=== PATIENT | female | born 1985 | race Caucasian/White ===

== ENCOUNTER 2018-11-30 08:42 | Inpatient (IN) | payer MEDICARE, MEDICAID ==
[2018-11-30] MEDS: HYDROCORTISONE 250 MG INJ IV (09:00)
[2018-11-30 09:20] LABS: ABNORMAL IP MESSAGE 1; HEMATOCRIT 25.1 % (37.0-47.0); HEMOGLOBIN 7.8 g/dl (12.0-16.0); MEAN CORPUSCULAR HEMOGLOBIN 33.9 pg (29.0-33.0); MEAN CORPUSCULAR HGB CONC 31.1 g/dl (32.0-37.0); MEAN CORPUSCULAR VOLUME 109.1 fl (82.0-101.0); MEAN PLATELET VOLUME 11.6 fl (7.4-10.4); NUCLEATED RED BLOOD CELLS% 0.4 /100WBC (0.0-0.0); PLATELET COUNT 203 10^3/UL (140-415); RED CELL DISTRIBUTION WIDTH 25.9 % (11.5-14.5)
[2018-11-30 09:20] LABS: WHITE BLOOD COUNT 5.6 10^3/ul (4.8-10.8)
[2018-11-30] MEDS: SUCCINYLCHOLINE CHLORIDE 100 MG/5 ML SYG IV (09:20)
[2018-11-30] MEDS: ETOMIDATE 20 MG INJ IV (09:20)
[2018-11-30 09:21] LABS: ADD MAN DIFF? YES; POSITIVE DIFF @See below
[2018-11-30] MEDS ORDERED: NORepinephrine 8MG/250 ML (PMX 250 ML (09:32)
[2018-11-30 09:34] LABS: ALANINE AMINOTRANSFERASE 39 IU/L (13-69); ALBUMIN 2.6 g/dl (3.3-4.9); ALBUMIN/GLOBULIN RATIO 0.96; ALKALINE PHOSPHATASE 251 IU/L (42-121); ANION GAP 15 (5-13); ASPARTATE AMINO TRANSFERASE 74 IU/L (15-46); BILIRUBIN,INDIRECT 2.1 mg/dl (0-1.1); BILIRUBIN,TOTAL 18.7 mg/dl (0.2-1.3); BLOOD UREA NITROGEN 12 mg/dl (7-20); CALCIUM 8.8 mg/dl (8.4-10.2); CARBON DIOXIDE 12 mmol/L (21-31); CHLORIDE 114 mmol/L (97-110); CREATININE 1.03 mg/dl (0.44-1.00); Estimated GFR > 60 mL/min (>60); GLUCOSE 78 mg/dl (70-220); SODIUM 141 mmol/L (135-144); TOTAL PROTEIN 5.3 g/dl (6.1-8.1)
[2018-11-30 09:35] LABS: AMMONIA 23 umol/l (9-30)
[2018-11-30 09:35] LABS: LIPASE < 10 U/L (23-300)
[2018-11-30 09:37] LABS: INR 1.15; PARTIAL THROMBOPLASTIN TIME 32.3 Sec (23.0-35.0); POTASSIUM 2.5 mmol/L (3.5-5.1); PROTIME 14.8 Sec (11.9-14.9); PT RATIO 1.2
[2018-11-30 09:46] LABS: TROPONIN-I < 0.012 ng/ml (0.000-0.120)
[2018-11-30] MEDS: HYDROCORTISONE 100 MG INJ IV ×3 (09:50→22:27)
[2018-11-30] MEDS: PROPOFOL 100 ML IV ×2 (09:50→14:59)
[2018-11-30] MEDS: SOD CHLORIDE 0.9% 1,000 ML IV ×4 (09:51→20:28)
[2018-11-30] MEDS: SODIUM CHLORIDE 0.9% 1L BAG IV* ×2 (09:51→19:31)
[2018-11-30] MEDS: CEFEPIME 2GM/50 ML (PMX) 50 ML IVPB (09:51)
[2018-11-30] MEDS: NORepinephrine 8MG/250 ML (PMX 250 ML IV ×3 (09:52→20:47)
[2018-11-30] MEDS ORDERED: ONDANSETRON 4 MG INJ IV (10:00)
[2018-11-30] MEDS ORDERED: ACETAMINOPHEN 325 MG TAB PO (10:00)
[2018-11-30 10:05] LABS: ANISOCYTOSIS 2+ (0-0); BAND NEUTROPHILS #M 0.6 10^3/ul (0.0-0.6); BAND NEUTROPHILS % (M) 12 % (0-4); BURR CELLS 3+ (0-0); ERYTHROBLAST% (NRBC) (M) 1 % (0-0); LYMPHOCYTES #M 1.7 10^3/ul (0.8-2.9); LYMPHOCYTES % (M) 31 % (15-51); MICROCYTOSIS 1+ (0-0); MONOCYTE #M 0.6 10^3/ul (0.3-0.9); MONOCYTES % (M) 12 % (0-11); OVALOCYTES 1+ (0-0); PLATELET ESTIMATE NORMAL; POIKILOCYTOSIS 3+ (0-0); POLYCHROMASIA 1+ (0-0); SEG NEUT #M 2.6 10^3/ul (1.6-7.5); SEGMENTED NEUTROPHILS (M) % 45 % (39-77); SMUDGE%M 2 % (0-0)
[2018-11-30] MEDS: ACETAMINOPHEN 120 MG SUPP PR (10:32)
[2018-11-30] MEDS: POTASSIUM CHLORIDE 50 ML IVPB ×4 (10:33→19:01)
[2018-11-30] MEDS: VANCOMYCIN 1 GM (PMX) 250 ML IVPB (10:40)
[2018-11-30] MEDS: FENTAnyl (DRIP) 1000 mcg/100mL 100 ML IV (11:07)
[2018-11-30 11:23] LABS: AADO2 Arterial 154.7 mmHg (7.0-24.0); Arterial Blood Gas Oxygen Sat 99.9 mmHG (95.0-98.0); Arterial COHb 0.7 % (0.0-3.0); Arterial HCO3 9.6 mmol/L (22.0-26.0); Arterial MetHb 0.2 % (0.0-1.5); Arterial pCO2 22.7 mmhg (35-45); MODE VENT - AC; Site Right Brachial
[2018-11-30] MEDS: ALBUMIN HUMAN 25% 100 ML IV (12:04)
[2018-11-30 12:55] LABS: CREATINE KINASE 41 IU/L (23-200)
[2018-11-30] MEDS: MIDAZOLAM (DRIP) 50 mg/50 mL 50 ML IV ×3 (13:01→19:05)
[2018-11-30 13:08] LABS: CK-MB 0.33 ng/ml (0.0-2.4); TROPONIN-I < 0.012 ng/ml (0.000-0.120)
[2018-11-30 13:14] LABS: LACTIC ACID 4.7 mmol/L (0.5-2.0)
[2018-11-30 13:16] LABS: CK INDEX 0.8
[2018-11-30 14:09] LABS: ADD UMIC YES; UR ASCORBIC ACID NEGATIVE (NEGATIVE); UR BACTERIA FEW /HPF (NONE SEEN); UR BILIRUBIN (Dip) 2+ mg/dL (NEGATIVE); UR BLOOD (Dip) 1+ mg/dL (NEGATIVE); UR CLARITY SLIGHTLY CLOUDY (CLEAR); UR COLOR AMBER (YELLOW); UR GLUCOSE (Dip) NEGATIVE (NEGATIVE); UR KETONES (Dip) NEGATIVE (NEGATIVE); UR LEUKOCYTE ESTERASE (Dip) NEGATIVE Leu/ul (NEGATIVE); UR MUCUS FEW /HPF (NONE SEEN); UR NITRITE (Dip) NEGATIVE (NEGATIVE); UR RBC 1 /HPF (0-5); UR SPECIFIC GRAVITY (Dip) 1.008 (1.003-1.030); UR SQUAMOUS EPITHELIAL CELL FEW /HPF (FEW); UR TOTAL PROTEIN (Dip) 2+ mg/dl (NEGATIVE); UR UROBILINOGEN (Dip) 2+ mg/dL (NEGATIVE); UR WBC 7 /HPF (0-5)
[2018-11-30] MEDS: URSODIOL 300 MG CAP PO ×2 (14:58→21:49)
[2018-11-30 16:30] LABS: LACTIC ACID 5.1 mmol/L (0.5-2.0)
[2018-11-30] MEDS ORDERED: VANCOMYCIN IV PER PHARMACY XX (16:30)
[2018-11-30 16:38] LABS: SODIUM,URINE RANDOM 82 mmol/L (30-90)
[2018-11-30 16:38] LABS: CREATININE,URINE RANDOM 30.11 mg/dl (20-320)
[2018-11-30] MEDS: PHENYLephrine 40 MG in DEXTROSE 5% 246 ML IV ×2 (18:38→23:55)
[2018-11-30 19:20] LABS: AADO2 Arterial 65.2 mmHg (7.0-24.0); Allen Test ACCEPTAB; Arterial Base Excess -17.1 mmol/L (-3.0-3); Arterial Blood Gas Oxygen Sat 98.2 mmHG (95.0-98.0); Arterial COHb 0.9 % (0.0-3.0); Arterial Fraction of Oxyhgb 97.2 % (93.0-99.0); Arterial HCO3 8.3 mmol/L (22.0-26.0); Arterial MetHb 0.1 % (0.0-1.5); Arterial pCO2 19.6 mmhg (35-45); MODE VENT - AC; Site Right Radial
[2018-11-30 19:22] LABS: CREATINE KINASE 67 IU/L (23-200)
[2018-11-30] MEDS: NA BICARBONATE 8.4% 50 ML SYG IV (19:31)
[2018-11-30 19:34] LABS: CK INDEX 1.7; CK-MB 1.16 ng/ml (0.0-2.4); TROPONIN-I < 0.012 ng/ml (0.000-0.120)
[2018-11-30] MEDS: metroNIDAZOLE 500 MG/NS (PMX) 100 ML IVPB ×2 (19:57→22:00)
[2018-11-30] MEDS: MEROPENEM 1 GM/50ML(PMX) 50 ML IVPB ×2 (19:57→22:00)
[2018-11-30] MEDS: SODIUM BICARBONATE (IV ADD) 100 MEQ in DEXTROSE 5%-0.45% NACL 900 ML IV (20:15)
[2018-11-30 20:50] LABS: PROCALCITONIN 120.64 ng/mL (0.00-0.10)
[2018-11-30] MEDS: VANCOMYCIN HCL 250 MG/5ML POSYG PO (21:06)
[2018-11-30] MEDS: CASPOFUNGIN 70 MG in SOD CHLORIDE 0.9% 250 ML IVPB (21:06)
[2018-11-30] MEDS: TACROLIMUS 1 MG CAP PO (21:49)
[2018-11-30] MEDS: CHOLESTYRAMINE 4 GM PACKET PO (21:49)
[2018-11-30] MEDS: DEXTROSE 5% IVPB (21:50)
[2018-11-30] MEDS: GANCICLOVIR IVPB (21:50)
[2018-11-30] MEDS: NA BICARBONATE 650 MG TAB PO (22:27)
[2018-11-30] MEDS: VANCOMYCIN 1 GM 250 ML IVPB (22:56)
[2018-12-01 00:18] LABS: AADO2 Arterial 78.7 mmHg (7.0-24.0); Allen Test ACCEPTAB; Arterial Base Excess -17.4 mmol/L (-3.0-3); Arterial Blood Gas Oxygen Sat 97.7 mmHG (95.0-98.0); Arterial COHb 0.8 % (0.0-3.0); Arterial Fraction of Oxyhgb 96.8 % (93.0-99.0); Arterial MetHb 0.1 % (0.0-1.5); Arterial pCO2 19.2 mmhg (35-45); Blood Gas Low PEEP Setting 0 cmH2O; MODE VENT - AC; Site Left Radial
[2018-12-01] MEDS: VANCOMYCIN HCL 250 MG/5ML POSYG PO ×2 (00:30→05:50)
[2018-12-01] MEDS: MIDAZOLAM (DRIP) 50 mg/50 mL 50 ML IV ×3 (00:40→17:28)
[2018-12-01] MEDS: NORepinephrine 8MG/250 ML (PMX 250 ML IV ×3 (01:14→10:08)
[2018-12-01 01:25] LABS: WHITE BLOOD COUNT 7.2 10^3/ul (4.8-10.8)
[2018-12-01 01:25] LABS: ABNORMAL IP MESSAGE 1; HEMATOCRIT 29.6 % (37.0-47.0); MEAN CORPUSCULAR HEMOGLOBIN 33.6 pg (29.0-33.0); MEAN CORPUSCULAR HGB CONC 30.4 g/dl (32.0-37.0); MEAN CORPUSCULAR VOLUME 110.4 fl (82.0-101.0); MEAN PLATELET VOLUME 9.8 fl (7.4-10.4); NUCLEATED RED BLOOD CELLS% 0.6 /100WBC (0.0-0.0); PLATELET COUNT 323 10^3/UL (140-415); RED BLOOD COUNT 2.68 10^6/ul (4.20-5.40); RED CELL DISTRIBUTION WIDTH 26.8 % (11.5-14.5)
[2018-12-01 01:26] LABS: POSITIVE DIFF @See below
[2018-12-01 01:27] LABS: ADD MAN DIFF? YES
[2018-12-01 01:42] LABS: CREATINE KINASE 69 IU/L (23-200)
[2018-12-01 01:44] LABS: LACTIC ACID 5.2 mmol/L (0.5-2.0)
[2018-12-01 01:45] LABS: INR 1.64; PROTIME 19.5 Sec (11.9-14.9); PT RATIO 1.5
[2018-12-01 01:54] LABS: ALANINE AMINOTRANSFERASE 48 IU/L (13-69); ALBUMIN 2.6 g/dl (3.3-4.9); ALKALINE PHOSPHATASE 203 IU/L (42-121); ANION GAP 16 (5-13); ASPARTATE AMINO TRANSFERASE 144 IU/L (15-46); BILIRUBIN,INDIRECT 2.1 mg/dl (0-1.1); BILIRUBIN,TOTAL 22.4 mg/dl (0.2-1.3); BLOOD UREA NITROGEN 14 mg/dl (7-20); CALCIUM 7.4 mg/dl (8.4-10.2); CHLORIDE 118 mmol/L (97-110); CREATININE 1.15 mg/dl (0.44-1.00); Estimated GFR 54 mL/min (>60); GLUCOSE 158 mg/dl (70-220); PHOSPHORUS 3.9 mg/dl (2.5-4.9); POTASSIUM 3.8 mmol/L (3.5-5.1); SODIUM 142 mmol/L (135-144); TOTAL PROTEIN 5.2 g/dl (6.1-8.1)
[2018-12-01 01:55] LABS: CK INDEX 1.9; CK-MB 1.34 ng/ml (0.0-2.4); TROPONIN-I < 0.012 ng/ml (0.000-0.120)
[2018-12-01 01:57] LABS: PARTIAL THROMBOPLASTIN TIME 68.3 Sec (23.0-35.0)
[2018-12-01 02:05] LABS: CARBON DIOXIDE 8 mmol/L (21-31)
[2018-12-01] MEDS: FENTAnyl (DRIP) 1000 mcg/100mL 100 ML IV ×2 (02:09→15:59)
[2018-12-01] MEDS: PROPOFOL 100 ML IV ×2 (03:00→15:00)
[2018-12-01 03:53] LABS: ANISOCYTOSIS 2+ (0-0); BAND NEUTROPHILS #M 2.1 10^3/ul (0.0-0.6); BAND NEUTROPHILS % (M) 30 % (0-4); ERYTHROBLAST% (NRBC) (M) 1 % (0-0); GIANT THROMBO% (M) 1 % (0-0); LYMPHOCYTES #M 0.1 10^3/ul (0.8-2.9); LYMPHOCYTES % (M) 2 % (15-51); METAMYELOCYTES #M 0.2 10^3/ul (0.0-0.0); METAMYELOCYTES %M 3 % (0-0); MICROCYTOSIS 1+ (0-0); MONOCYTE #M 0.5 10^3/ul (0.3-0.9); MONOCYTES % (M) 8 % (0-11); PLATELET ESTIMATE NORMAL; POIKILOCYTOSIS 3+ (0-0); POLYCHROMASIA 1+ (0-0); PROMYELOCYTES % (M) 1 % (0-0); SEG NEUT #M 4.2 10^3/ul (1.6-7.5); SEGMENTED NEUTROPHILS (M) % 56 % (39-77); SMUDGE%M 2 % (0-0)
[2018-12-01] MEDS: SOD CHLORIDE 0.9% 1,000 ML IV (04:42)
[2018-12-01 05:22] LABS: ABNORMAL IP MESSAGE 1; HEMATOCRIT 30.5 % (37.0-47.0); HEMOGLOBIN 9.2 g/dl (12.0-16.0); MEAN CORPUSCULAR HEMOGLOBIN 33.1 pg (29.0-33.0); MEAN CORPUSCULAR HGB CONC 30.2 g/dl (32.0-37.0); MEAN CORPUSCULAR VOLUME 109.7 fl (82.0-101.0); MEAN PLATELET VOLUME 10.9 fl (7.4-10.4); NUCLEATED RED BLOOD CELLS% 0.4 /100WBC (0.0-0.0); PLATELET COUNT 307 10^3/UL (140-415); RED BLOOD COUNT 2.78 10^6/ul (4.20-5.40); RED CELL DISTRIBUTION WIDTH 26.9 % (11.5-14.5)
[2018-12-01 05:22] LABS: WHITE BLOOD COUNT 7.9 10^3/ul (4.8-10.8)
[2018-12-01 05:24] LABS: ANION GAP 17 (5-13); BLOOD UREA NITROGEN 15 mg/dl (7-20); CALCIUM 7.3 mg/dl (8.4-10.2); CHLORIDE 116 mmol/L (97-110); CREATININE 1.41 mg/dl (0.44-1.00); Estimated GFR 43 mL/min (>60); GLUCOSE 190 mg/dl (70-220); PHOSPHORUS 4.4 mg/dl (2.5-4.9); POTASSIUM 3.5 mmol/L (3.5-5.1); SODIUM 142 mmol/L (135-144)
[2018-12-01 05:33] LABS: ADD MAN DIFF? YES; POSITIVE DIFF @See below
[2018-12-01] MEDS: PANTOPRAZOLE 40 MG INJ IV (05:33)
[2018-12-01] MEDS: HYDROCORTISONE 100 MG INJ IV ×3 (05:34→21:02)
[2018-12-01] MEDS: metroNIDAZOLE 500 MG/NS (PMX) 100 ML IVPB ×3 (05:34→21:38)
[2018-12-01] MEDS: MEROPENEM 1 GM/50ML(PMX) 50 ML IVPB ×2 (05:34→13:40)
[2018-12-01 05:39] LABS: CARBON DIOXIDE 9 mmol/L (21-31)
[2018-12-01 05:40] LABS: LACTIC ACID 6.9 mmol/L (0.5-2.0)
[2018-12-01] MEDS: SODIUM BICARBONATE (IV ADD) 100 MEQ in DEXTROSE 5%-0.45% NACL 900 ML IV (05:47)
[2018-12-01] MEDS: PHENYLephrine 40 MG in DEXTROSE 5% 246 ML IV (05:49)
[2018-12-01 08:09] LABS: AADO2 Arterial 100.9 mmHg (7.0-24.0); Allen Test ACCEPTAB; Arterial Base Excess -18.9 mmol/L (-3.0-3); Arterial Blood Gas Oxygen Sat 96.4 mmHG (95.0-98.0); Arterial Fraction of Oxyhgb 95.1 % (93.0-99.0); Arterial HCO3 7.1 mmol/L (22.0-26.0); Arterial MetHb 0.3 % (0.0-1.5); Arterial pCO2 18.4 mmhg (35-45); MODE VENT - AC; Site Right Radial
[2018-12-01 08:10] LABS: ANISOCYTOSIS 2+ (0-0); BAND NEUTROPHILS #M 3.7 10^3/ul (0.0-0.6); BAND NEUTROPHILS % (M) 47 % (0-4); BURR CELLS 3+ (0-0); LYMPHOCYTES #M 0.3 10^3/ul (0.8-2.9); LYMPHOCYTES % (M) 5 % (15-51); METAMYELOCYTES #M 0.2 10^3/ul (0.0-0.0); METAMYELOCYTES %M 3 % (0-0); MICROCYTOSIS 1+ (0-0); MONOCYTE #M 0.7 10^3/ul (0.3-0.9); MONOCYTES % (M) 9 % (0-11); MYELOCYTES % (M) 1 % (0-0); OVALOCYTES 1+ (0-0); PLATELET ESTIMATE NORMAL; POIKILOCYTOSIS 3+ (0-0); POLYCHROMASIA 1+ (0-0); REACTIVE LYMPHOCYTES% (M) 1 % (0-0); SCHISTOCYTES 1+ (0-0); SEGMENTED NEUTROPHILS (M) % 34 % (39-77); SMUDGE%M 4 % (0-0)
[2018-12-01] MEDS: MAGNESIUM SULFATE 2 GM/50 ML 50 ML IVPB ×2 (08:43→11:16)
[2018-12-01] MEDS ORDERED: MULTIVITAMINS/MINERALS TAB PO (09:00)
[2018-12-01] MEDS: SODIUM BICARBONATE (IV ADD) 150 MEQ in DEXTROSE 5% 850 ML IV ×3 (09:00→19:31)
[2018-12-01] MEDS: NA BICARBONATE 8.4% 50 ML SYG IV ×2 (09:39→22:03)
[2018-12-01] MEDS: DEXTROSE 5% IVPB (09:43)
[2018-12-01] MEDS: GANCICLOVIR IVPB (09:43)
[2018-12-01] MEDS: CHOLESTYRAMINE 4 GM PACKET NGT ×2 (09:52→21:04)
[2018-12-01] MEDS: TACROLIMUS 1 MG CAP NGT ×2 (09:52→21:04)
[2018-12-01] MEDS: NA BICARBONATE 650 MG TAB NGT ×2 (09:52→21:03)
[2018-12-01] MEDS: URSODIOL 300 MG CAP NGT ×3 (09:53→21:04)
[2018-12-01] MEDS: MULTIVITAMINS/MINERALS TAB NGT (09:53)
[2018-12-01] MEDS: VANCOMYCIN 1 GM 250 ML IVPB (11:21)
[2018-12-01 11:47] LABS: LACTIC ACID 6.8 mmol/L (0.5-2.0)
[2018-12-01] MEDS ORDERED: AMIKACIN IV PER PHARMACY XX (12:00)
[2018-12-01] MEDS ORDERED: VANCOMYCIN HCL 250 MG/5ML POSYG NGT (12:00)
[2018-12-01] MEDS: PHENYLephrine 80 MG in DEXTROSE 5% 242 ML IV ×2 (12:25→23:32)
[2018-12-01] MEDS: INSULIN ASPART [NOVOLOG] 3 ML PEN SC ×3 (13:39→21:17)
[2018-12-01] MEDS: NORepinephrine 32 MG in DEXTROSE 5% 218 ML IV ×2 (14:36→23:10)
[2018-12-01] MEDS: AMIKACIN IVPB (14:53)
[2018-12-01] MEDS: SOD CHLORIDE 0.9% IVPB (14:53)
[2018-12-01 16:46] LABS: CREATININE, RANDOM URINE 31 mg/dL (20-275); MICROALBUMIN 58.3 mg/dL; MICROALBUMIN/CREATININE RATIO 1881 (<30)
[2018-12-01] MEDS ORDERED: CASPOFUNGIN 50 MG in SOD CHLORIDE 0.9% 250 ML IVPB (20:00)
[2018-12-01 21:23] LABS: CMV DNA QL SOURCE WHOLE BLOOD
[2018-12-01 21:24] LABS: WHITE BLOOD COUNT 6.7 10^3/ul (4.8-10.8)
[2018-12-01 21:24] LABS: ABNORMAL IP MESSAGE 1; HEMATOCRIT 29.2 % (37.0-47.0); HEMOGLOBIN 8.4 g/dl (12.0-16.0); MEAN CORPUSCULAR HEMOGLOBIN 33.2 pg (29.0-33.0); MEAN CORPUSCULAR HGB CONC 28.8 g/dl (32.0-37.0); MEAN CORPUSCULAR VOLUME 115.4 fl (82.0-101.0); PLATELET COUNT 99 10^3/UL (140-415); RED BLOOD COUNT 2.53 10^6/ul (4.20-5.40); RED CELL DISTRIBUTION WIDTH 27.6 % (11.5-14.5)
[2018-12-01 21:33] LABS: MEAN PLATELET VOLUME 13.5 fl (7.4-10.4); POSITIVE DIFF @See below
[2018-12-01 21:34] LABS: ADD MAN DIFF? YES
[2018-12-01] MEDS: CASPOFUNGIN 35 MG in SOD CHLORIDE 0.9% 250 ML IVPB (21:37)
[2018-12-01 21:43] LABS: AADO2 Arterial 136.2 mmHg (7.0-24.0); Arterial Base Excess -26.2 mmol/L (-3.0-3); Arterial Blood Gas Oxygen Sat 60.5 mmHG (95.0-98.0); Arterial COHb 0.6 % (0.0-3.0); Arterial HCO3 5.6 mmol/L (22.0-26.0); Arterial MetHb 0.2 % (0.0-1.5); Arterial pCO2 31.8 mmhg (35-45); Blood Gas Low PEEP Setting 0 cmH2O; MODE VENT - AC; Site Right Brachial
[2018-12-01 21:44] LABS: ALANINE AMINOTRANSFERASE 48 IU/L (13-69); ALBUMIN 2.5 g/dl (3.3-4.9); ALBUMIN/GLOBULIN RATIO 0.92; ALKALINE PHOSPHATASE 168 IU/L (42-121); ANION GAP 21 (5-13); ASPARTATE AMINO TRANSFERASE 84 IU/L (15-46); BILIRUBIN,INDIRECT 1.8 mg/dl (0-1.1); BILIRUBIN,TOTAL 21.4 mg/dl (0.2-1.3); BLOOD UREA NITROGEN 20 mg/dl (7-20); CALCIUM 6.7 mg/dl (8.4-10.2); CHLORIDE 112 mmol/L (97-110); Estimated GFR 30 mL/min (>60); GLUCOSE 152 mg/dl (70-220); MAGNESIUM 2.1 mg/dl (1.7-2.5); PHOSPHORUS 8.1 mg/dl (2.5-4.9); POTASSIUM 4.1 mmol/L (3.5-5.1); SODIUM 140 mmol/L (135-144); TOTAL PROTEIN 5.2 g/dl (6.1-8.1)
[2018-12-01] MEDS: SOD CHLORIDE 0.9% 500 ML IV (21:45)
[2018-12-01 21:52] LABS: CARBON DIOXIDE 7 mmol/L (21-31)
[2018-12-01 21:54] LABS: LACTIC ACID 13.9 mmol/L (0.5-2.0)
[2018-12-01] MEDS: VASOPRESSIN 60 UNIT in DEXTROSE 5% 57 ML IV (22:16)
[2018-12-01 22:22] LABS: ANISOCYTOSIS 2+ (0-0); BAND NEUTROPHILS #M 1.6 10^3/ul (0.0-0.6); BAND NEUTROPHILS % (M) 24 % (0-4); BURR CELLS 3+ (0-0); ERYTHROBLAST% (NRBC) (M) 2 % (0-0); LYMPHOCYTES #M 0.2 10^3/ul (0.8-2.9); LYMPHOCYTES % (M) 4 % (15-51); METAMYELOCYTES #M 0.4 10^3/ul (0.0-0.0); METAMYELOCYTES %M 6 % (0-0); MICROCYTOSIS 1+ (0-0); MONOCYTE #M 1.2 10^3/ul (0.3-0.9); MONOCYTES % (M) 19 % (0-11); MYELOCYTES #M 0.1 10^3/ul (0.0-0.0); MYELOCYTES % (M) 2 % (0-0); PLATELET ESTIMATE DECREASED; POIKILOCYTOSIS 3+ (0-0); POLYCHROMASIA 1+ (0-0); PROMYELOCYTES % (M) 1 % (0-0); SEG NEUT #M 3.1 10^3/ul (1.6-7.5); SEGMENTED NEUTROPHILS (M) % 44 % (39-77); SMUDGE%M 2 % (0-0)
[2018-12-01] MEDS: DOPamine-D5W 1.6 MG/ML 250 ML IV (22:49)
[2018-12-02] MEDS: INSULIN ASPART [NOVOLOG] 3 ML PEN SC ×5 (00:42→18:38)
[2018-12-02] MEDS: MIDAZOLAM (DRIP) 50 mg/50 mL 50 ML IV (01:02)
[2018-12-02] MEDS: ACCU-CHEK XX (02:00)
[2018-12-02] MEDS: PROPOFOL 100 ML IV ×2 (03:00→15:00)
[2018-12-02] MEDS: PHENYLephrine 80 MG in DEXTROSE 5% 242 ML IV ×2 (04:42→10:05)
[2018-12-02 05:13] LABS: PLATELET COUNT 89 10^3/UL (140-415)
[2018-12-02 05:16] LABS: ABNORMAL IP MESSAGE 1; HEMATOCRIT 28.1 % (37.0-47.0); HEMOGLOBIN 8.6 g/dl (12.0-16.0); MEAN CORPUSCULAR HEMOGLOBIN 33.1 pg (29.0-33.0); MEAN CORPUSCULAR HGB CONC 30.6 g/dl (32.0-37.0); MEAN CORPUSCULAR VOLUME 108.1 fl (82.0-101.0); NUCLEATED RED BLOOD CELLS% 1.7 /100WBC (0.0-0.0); PLATELET COUNT 98 10^3/UL (140-415); RED CELL DISTRIBUTION WIDTH 27.3 % (11.5-14.5)
[2018-12-02 05:30] LABS: ADD MAN DIFF? YES; POSITIVE DIFF @See below
[2018-12-02] MEDS: PANTOPRAZOLE 40 MG INJ IV (05:48)
[2018-12-02] MEDS: metroNIDAZOLE 500 MG/NS (PMX) 100 ML IVPB ×2 (05:48→14:24)
[2018-12-02 05:49] LABS: ANION GAP 22 (5-13); BLOOD UREA NITROGEN 22 mg/dl (7-20); CALCIUM 6.4 mg/dl (8.4-10.2); CARBON DIOXIDE 10 mmol/L (21-31); CHLORIDE 110 mmol/L (97-110); CREATININE 1.74 mg/dl (0.44-1.00); Estimated GFR 33 mL/min (>60); GLUCOSE 155 mg/dl (70-220); INR 2.39; POTASSIUM 3.7 mmol/L (3.5-5.1); PROTIME 26.1 Sec (11.9-14.9); SODIUM 142 mmol/L (135-144)
[2018-12-02 05:50] LABS: THROMBIN TIME 20.7 SEC (13.8-19.1)
[2018-12-02] MEDS: SODIUM BICARBONATE (IV ADD) 150 MEQ in DEXTROSE 5% 850 ML IV ×2 (05:58→18:30)
[2018-12-02 06:06] LABS: LACTIC ACID 11.3 mmol/L (0.5-2.0)
[2018-12-02 06:09] LABS: PARTIAL THROMBOPLASTIN TIME 85.1 Sec (23.0-35.0)
[2018-12-02 06:16] LABS: MAGNESIUM 1.8 mg/dl (1.7-2.5)
[2018-12-02 06:31] LABS: VANCOMYCIN,RANDOM 30.9 ug/ml
[2018-12-02] MEDS: FENTAnyl (DRIP) 1000 mcg/100mL 100 ML IV (06:55)
[2018-12-02 07:27] LABS: AADO2 Arterial 387.7 mmHg (7.0-24.0); Allen Test ACCEPTAB; Arterial Blood Gas Oxygen Sat 99.5 mmHG (95.0-98.0); Arterial COHb 0.4 % (0.0-3.0); Arterial MetHb 0.1 % (0.0-1.5); Arterial pCO2 25.1 mmhg (35-45); MODE VENT - AC; Site Right Radial
[2018-12-02 08:17] LABS: ANISOCYTOSIS 2+ (0-0); BAND NEUTROPHILS #M 2.5 10^3/ul (0.0-0.6); BAND NEUTROPHILS % (M) 36 % (0-4); BURR CELLS 2+ (0-0); ERYTHROBLAST% (NRBC) (M) 4 % (0-0); LYMPHOCYTES #M 0.2 10^3/ul (0.8-2.9); LYMPHOCYTES % (M) 4 % (15-51); MONOCYTE #M 0.4 10^3/ul (0.3-0.9); MONOCYTES % (M) 7 % (0-11); OVALOCYTES 1+ (0-0); PLATELET ESTIMATE DECREASED; POIKILOCYTOSIS 3+ (0-0); POLYCHROMASIA 1+ (0-0); SEG NEUT #M 3.9 10^3/ul (1.6-7.5); SEGMENTED NEUTROPHILS (M) % 53 % (39-77); SMUDGE%M 7 % (0-0); TOXIC GRANULATION 1+ (0-0)
[2018-12-02] MEDS: ALBUMIN HUMAN 25% 100 ML IV ×2 (09:02→18:27)
[2018-12-02] MEDS: NA BICARBONATE 650 MG TAB NGT (09:30)
[2018-12-02] MEDS: TACROLIMUS 1 MG CAP NGT (09:30)
[2018-12-02] MEDS: URSODIOL 300 MG CAP NGT ×2 (09:31→13:50)
[2018-12-02] MEDS: CHOLESTYRAMINE 4 GM PACKET NGT (09:31)
[2018-12-02] MEDS: MULTIVITAMINS/MINERALS TAB NGT (09:31)
[2018-12-02] MEDS: NA BICARBONATE 8.4% 50 ML SYG IV (09:43)
[2018-12-02] MEDS: CALCIUM GLUCONATE 10% 2 GM in DEXTROSE 5% 100 ML IVPB (10:07)
[2018-12-02] MEDS: FUROSEMIDE 40 MG INJ IV (10:17)
[2018-12-02] MEDS: VASOPRESSIN 60 UNIT in DEXTROSE 5% 57 ML IV ×2 (11:32→18:40)
[2018-12-02] MEDS: PHYTONADIONE 10 MG in DEXTROSE 5% 50 ML IVPB (12:18)
[2018-12-02] MEDS: MEROPENEM 1 GM/50ML(PMX) 50 ML IVPB (14:24)
[2018-12-02] MEDS: HYDROCORTISONE 100 MG INJ IV (14:24)
[2018-12-02 14:31] LABS: AADO2 Arterial 117.7 mmHg (7.0-24.0); Allen Test ACCEPTAB; Arterial Base Excess -12.9 mmol/L (-3.0-3); Arterial Blood Gas Oxygen Sat 98.6 mmHG (95.0-98.0); Arterial COHb 0.7 % (0.0-3.0); Arterial Fraction of Oxyhgb 97.9 % (93.0-99.0); Arterial HCO3 11.8 mmol/L (22.0-26.0); Arterial MetHb 0 % (0.0-1.5); Arterial pCO2 23.6 mmhg (35-45); MODE VENT - AC; Site Right Radial
[2018-12-02] MEDS ORDERED: EPINEPHrine 4 MG in DEXTROSE 5% 246 ML IV (15:00)
[2018-12-02 16:06] LABS: CRYPTOCOCCAL ANTIGEN - SOURCE SERUM
[2018-12-02] MEDS: NORepinephrine 32 MG in DEXTROSE 5% 218 ML IV (18:37)
[2018-12-04] MEDS ORDERED: GANCICLOVIR IVPB (09:00)
[2018-12-04] MEDS ORDERED: DEXTROSE 5% IVPB (09:00)
== END 2018-12-02 19:20 | disposition other institution (70) | DRG 871 ==
LOC: E/R 08:42 → ICU 09:53
PROVIDERS: Internal Medicine
PROC: 0BH17EZ Insertion of Endotracheal Airway into Trachea, Via Natural or Artificial Opening (ICD-10-PCS; principal; 2018-11-30)
PROC: 5A1945Z Respiratory Ventilation, 24-96 Consecutive Hours (ICD-10-PCS; 2018-11-30)
PROC: 4A133R1 Monitoring of Arterial Saturation, Peripheral, Percutaneous Approach (ICD-10-PCS; 2018-11-30)
PROC: 02HV33Z Insertion of Infusion Device into Superior Vena Cava, Percutaneous Approach (ICD-10-PCS; 2018-11-30)
DX: A41.51 Sepsis due to Escherichia coli [E. coli] (principal); R65.21 Severe sepsis with septic shock; J96.00 Acute respiratory failure, unspecified whether with hypoxia or hypercapnia; N17.0 Acute kidney failure with tubular necrosis; G92 Toxic encephalopathy; J18.9 Pneumonia, unspecified organism; D68.9 Coagulation defect, unspecified; T86.41 Liver transplant rejection; T86.42 Liver transplant failure; E87.2 Acidosis; I10 Essential (primary) hypertension; F32.9 Major depressive disorder, single episode, unspecified; D53.1 Other megaloblastic anemias, not elsewhere classified; E11.9 Type 2 diabetes mellitus without complications; E87.6 Hypokalemia; E88.81 Metabolic syndrome and other insulin resistance; D63.8 Anemia in other chronic diseases classified elsewhere; E50.9 Vitamin A deficiency, unspecified; E56.0 Deficiency of vitamin E; E83.42 Hypomagnesemia; Y83.0 Surgical operation with transplant of whole organ as the cause of abnormal reaction of the patient, or of later complication, without mention of misadventure at the time of the procedure; Z79.4 Long term (current) use of insulin
CPT/HCPCS: 31500; 36415; 36600; 71045; 74176; 76775; 76942; 80048; 80053; 80197; 80202; 81001; 81003; 82043; 82140; 82550; 82553; 82803; 82962; 83605; 83690; 83735; 84100; 84145; 84155; 84300; 84484; 84703; 85025; 85049; 85610; 85670; 85730; 86641; 86850; 86900; 86901; 87040-91; 87070; 87081; 87086; 87400; 87496; 89220; 93005; 93306; 94002; 94003; 94770; 96374; 96375; 99291-25